=== PATIENT | female | born 1980 | race African-American/Black ===

== ENCOUNTER 2018-01-08 11:05 | Day surgery (SDC) | payer OTHER ==
--- NOTE | 2017-12-27 09:14 | HP ---
DATE OF ADMISSION: 01/08/2018 HISTORY: This is a 37-year-old woman who presents for excision of a longstanding, enlarged soft tissue mass involving the right lower back of undetermined etiology. According to the patient, the mass has been there at least 10 years' time. It was initially small but has continued to grow in size. It has now become large enough where it causes her local discomfort with pressure. PAST MEDICAL HISTORY: Nil. No history of hypertension, heart disease, obesity , respiratory, renal, or hepatic insufficiency. PAST SURGICAL HISTORY: Nil. ALLERGIES: None known. MEDICATIONS: Phentermine 35 mg b.i.d. SOCIAL HISTORY: Negative tobacco. Positive alcohol once weekly. FAMILY HISTORY: None. REVIEW OF SYSTEMS: None. PHYSICAL EXAMINATION: On examination, the patient has a large soft tissue mass involving the right lower back measuring at least 10 cm in size. It appears deep to the lumbee subcutaneous tissue and is somewhat tethered in its posterior plane. There are no satellite lesions or regional lymphadenopathy. IMPRESSION: Enlarging soft tissue mass of the right lower back of undetermined etiology. PLAN: MRI with and without IV contrast. We will proceed with definitive surgical management after MRI evaluation in the form of excision. Indications, alternatives, possible complications were reviewed. Consent obtained. The patient was seen preoperatively by Dr. Brendan Funez. Please refer to his note for those medical details. DUONG CARDOSO M.D. [id number] MTDD
[2018-01-02 10:31] VITALS: BMI 25.5
[2018-01-08] MEDS ORDERED: MIDAZOLAM HCL 2 MG/2 ML SINGLE DOSE VIAL ONE (14:38)
[2018-01-08] MEDS ORDERED: KETOROLAC TROMETHAMINE 30 MG/1 ML VIAL ONE (14:49)
[2018-01-08] MEDS ORDERED: ROCURONIUM BROMIDE 50 MG/5 ML VIAL ONE (14:49)
[2018-01-08] MEDS ORDERED: PROPOFOL 20 ML ONE (14:49)
[2018-01-08] MEDS ORDERED: LIDOCAINE HCL/PF 2% SDV 5ML VIAL ONE (14:49)
[2018-01-08] MEDS ORDERED: DEXAMETHASONE SOD PHOSPHATE 4 MG/1 ML VIAL ONE (14:49)
[2018-01-08] MEDS ORDERED: ONDANSETRON 4 MG/2 ML VIAL ONE (14:49)
[2018-01-08] MEDS ORDERED: BUPIVACAINE HCL/PF 0.5% (5MG/ML) 10 ML VIAL ONE (15:04)
[2018-01-08] MEDS ORDERED: GLYCOPYRROLATE 0.2 MG/1 ML VIAL ONE ×2 (15:39)
[2018-01-08] MEDS ORDERED: NEOSTIGMINE METHYLSULFATE 0.5 MG/ML - 10 ML MDV ONE (15:39)
[2018-01-08] MEDS ORDERED: PROMETHAZINE HCL 25 MG/1 ML VIAL IVPUSH PRN (15:53)
[2018-01-08] MEDS ORDERED: oxyCODONE HCL 5 MG TABLET PO PRN (15:53)
[2018-01-08] MEDS ORDERED: ONDANSETRON 4 MG/2 ML VIAL IVPUSH PRN (15:53)
[2018-01-08] MEDS ORDERED: LACTATED RINGERS SOLUTION 1,000 ML IV SCH (16:00)
[2018-01-08 17:02] VITALS: TEMP 97.8
[2018-01-08 18:24] VITALS: BP 126/78; PULSE 72
--- NOTE | 2018-01-08 18:25 | OP ---
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 POSTOPERATIVE DIAGNOSIS: Subfascial lipomatous neoplasia right lower back. PROCEDURE: Excision subfascial lipomatous neoplasia right lower back, intermediate wound closure (8 cm). OPERATING SURGEON: Sharad Combs M.D. COSMETOLOGIST: None ANESTHESIA: Eugene Kay M.D. (general) HISTORY: A 38-year-old woman who presents for an enlarged soft tissue mass of the right lower back over a considerable period of time. MRI demonstrated a lipomatous neoplasia with septations but with no suspicious stigmata of malignancy. She presented for formal excision. Indications, alternatives, possible complications reviewed. Consent obtained. DESCRIPTION OF PROCEDURE: With the patient in the prone position under general anesthesia, the right lower back was prepped with Betadine. An 8-cm transverse incision was made directly over the mesh and deepened into the subcutaneous space. In the subcutaneous space, a moderately well encapsulated lipomatous neoplasia was encountered. Using sharp dissection, it was teased from its bed in the subcutaneous space and followed to its base. A small portion of it was noted to be emanating through the fibers of the underlying musculature. The muscle fibers were and the lipomatous neoplasia was teased out from its bed at that level and ultimately delivered. After irrigation and adequate hemostasis, the wound was closed in layers. The fascia was closed using interrupted 3-0 chromic sutures. The subcutaneous tissues were approximated using interrupted 3-0 Vicryl sutures. The skin edges were approximated using continuous 5-0 nylon suture. Prior to complete closure of the wound, 10 mL of 0.5% Marcaine was freely instilled in the wound. Dermabond applied. Dressings applied. Procedure terminated. Needle and instrument count correct. Estimated blood loss minimal. Specimens: subfascial soft tissue neoplasia right lower back. Drains none. Patient tolerated the procedure. The procedure was terminated. SHARAD COMBS M.D. [id number] MTDD
--- NOTE | 2018-01-10 15:45 | PATH ---
Surgical Pathology Report Patient Name: MAYELA VITAL [facility]. Rec. #: [id number] /Age/Gender: 1980 (Age: 37) / F Account: [id number] Location: [facility] AMBUL[facility]ORY Taken: 01/08/2018 Received: 01/09/2018 Reported: 01/10/2018 Physicians: Sharad Combs M.D. Specimen(s) Received RIGHT LOWER BACK SOFT TISSUE NEOPLASM Clinical History Benign neoplasm Final Diagnosis SOFT TISSUE, RIGHT LOWER BACK, EXCISION: LIPOMA. Electronically Signed Sam Elise M.D. Gross Description Received in formalin labeled "right lower back soft tissue mass," is an 8.0 x 7.6 x 4.0 cm portion of yellow, lobulated adipose tissue. Sectioning reveals homogeneous yellow, smooth fat. Senior Product Manager sections are submitted in 4 cassettes. /01/09/2018 saudi/01/09/2018
== END 2018-01-08 17:30 | disposition home or self-care (01) ==
LOC: FASU 11:05
PROVIDERS: ATTEND Surgery
PROC: 0JB70ZX Excision of Back Subcutaneous Tissue and Fascia, Open Approach, Diagnostic (ICD-10-PCS; principal; 2018-01-08 15:07)
DX: D21.6 Benign neoplasm of connective and other soft tissue of trunk, unspecified (principal)
CPT/HCPCS: 84703; 88304-TC; 94760

== ENCOUNTER → 2019-04-28 | Day surgery (SDC) | payer OTHER ==
--- NOTE | 2019-04-30 12:14 | PATH ---
Surgical Pathology Report Patient Name: MAYELA VITAL [facility]. Rec. #: [id number] /Age/Gender: 1980 (Age: 38) / F Account: [id number] Location: [facility] RADIOLOGY U Taken: 04/28/2019 Received: 04/28/2019 Reported: 04/30/2019 Physicians: Cori Dunham M.D. Specimen(s) Received RIGHT BREAST UOQ CORE BIOPSY Clinical History Suspicious enhancing area right upper outer quadrant Final Diagnosis BREAST, RIGHT, UOQ, CORE BIOPSY: RADIAL SCLEROSING LESION WITH ASSOCIATED PROLIFERATIVE FIBROCYSTIC CHANGES INCLUDING CYSTIC APOCRINE METAPLASIA, USUAL AND PAPILLARY DUCTAL HYPERPLASIA, COLUMNAR CELL CHANGE AND ASSOCIATED CALCIFICATIONS. Electronically Signed Kailey Munson M.D. Gross Description Received in formalin labeled "right breast," are 8 holt-yellow, cylindrical portions of fibroadipose tissue ranging from 0.6-3.6 cm in length and averaging 0.4 cm in diameter. The specimens are submitted in toto in 2 cassettes. Time to formalin fixation: 2 minutes Total formalin fixation time: Approximately 32 hours. /04/29/2019 saudi04/29/2019
== END | disposition home or self-care (01) ==
LOC: FRADUS-SUR 09:00
PROVIDERS: ATTEND Surgery Surgical Oncology
PROC: 0HBT3ZX Excision of Right Breast, Percutaneous Approach, Diagnostic (ICD-10-PCS; principal; 2019-04-28)
DX: N60.11 Diffuse cystic mastopathy of right breast (principal); N60.81 Other benign mammary dysplasias of right breast; N64.89 Other specified disorders of breast; N63.31 Unspecified lump in axillary tail of the right breast
CPT/HCPCS: 19085; 77065-TC; 88305-TC; A4648; A9579; C1887

== ENCOUNTER 2019-06-09 06:38 | Day surgery (SDC) | payer OTHER ==
--- NOTE | 2019-05-25 13:02 | HP ---
Admitting History and Physical - Primary Care Physician PCP: Josse Arnold - Admission Chief Complaint: Right nipple discharge and radial sclerosing lesion History of Present Illness: Patient is a 38 yo female who presented to the office with complaint of right nipple discharge and right breast pain. Patient was noted to have a right focal density with subtle distortion not seen on US. An MRI done 04/21/2019 was c /w a right 1.6 cm enhancing mass in the axillary tail therefore an MRI guided core bx was recommended. The pathology revealed a right radial sclerosing lesion and hyperplasia. Patient is now presenting for a right breast WE with NL and right MDE. History Source: Patient Limitations to Obtaining History: No Limitations - Past Medical History ...LMP: 12/21/17 - Past Surgical History Additional Past Surgical History: Excision of lower back mass (2019 c/w benign cyst) - Smoking History Smoking history: Former smoker Have you smoked in the past 12 months: No If you are a former smoker, when did you quit?: 2006 - Alcohol/Substance Use Hx Alcohol Use: Yes (OCCASIONAL) Home Medications - Allergies Allergies/Adverse Reactions: Allergies Allergy/AdvReac Type Severity Reaction Status Date / Time No Known Allergies Allergy Verified 01/08/18 11:49 - Home Medications Home Medications: Ambulatory Orders Oxycodone HCl/Acetaminophen [Percocet 5-325 mg Tablet] 1 tab PO Q4H PRN #20 tablet MDD 6 01/08/18 Family Disease History - Family Disease History Family Disease History: CA: Mother (breast cancer at 50) Review of Systems - Review of Systems Constitutional: reports: No Symptoms Cardiovascular: reports: No Symptoms Respiratory: reports: No Symptoms Physical Examination Cardiovascular: Yes: WNL Respiratory: Yes: WNL Breast(s): Yes: Discharge from Nipple (Right pink nipple discharge was illicited. No other suspicious masses or adenopathy was noted bilaterally) Problem List - Problems (1) Discharge from right nipple Code(s): N64.52 - NIPPLE DISCHARGE (2) Breast mass, right Code(s): N63.10 - UNSPECIFIED LUMP IN THE RIGHT BREAST, UNSPECIFIED QUADRANT Assessment/Plan Right breast WE with NL and right major duct excision
[2019-06-04 11:15] VITALS: BMI 27.3
[2019-06-09] MEDS ORDERED: MIDAZOLAM HCL 2 MG/2 ML SINGLE DOSE VIAL ONE ×3 (11:12→11:26)
[2019-06-09] MEDS ORDERED: PROPOFOL 20 ML ONE ×3 (11:12→12:07)
[2019-06-09] MEDS ORDERED: fentaNYL CITRATE 250 MCG/5 ML VIAL ONE ×2 (11:12→11:56)
[2019-06-09] MEDS ORDERED: BUPIVACAINE HCL/PF 2.5 MG/ML - 30 ML VIAL IJ ONE (11:15)
[2019-06-09] MEDS ORDERED: LIDOCAINE 1%/EPI 1:100000 (20 ML MULTI DOSE VIAL) ONE (11:15)
[2019-06-09] MEDS ORDERED: ROCURONIUM BROMIDE 50 MG/5 ML SYRINGE ONE (11:46)
[2019-06-09] MEDS ORDERED: GLYCOPYRROLATE 0.2 MG/1 ML VIAL ONE ×2 (12:00→12:46)
[2019-06-09] MEDS ORDERED: DEXAMETHASONE SOD PHOSPHATE 4 MG/1 ML VIAL ONE (12:00)
[2019-06-09] MEDS ORDERED: ONDANSETRON 4 MG/2 ML VIAL ONE ×2 (12:00→13:01)
[2019-06-09] MEDS ORDERED: NEOSTIGMINE METHYLSULFATE 0.5 MG/ML - 10 ML MDV ONE (12:01)
[2019-06-09] MEDS ORDERED: BUPIVACAINE HCL/PF 0.25% (2.5MG/ML) 10 ML VIAL IJ ONE (12:25)
[2019-06-09] MEDS ORDERED: GUM MASTIC/STORAX/MSAL/ALCOHOL 1 DRP DROPSBTL MC ONE (12:38)
[2019-06-09] MEDS ORDERED: KETOROLAC TROMETHAMINE 30 MG/1 ML VIAL IVPUSH PRN (12:59)
[2019-06-09] MEDS ORDERED: ONDANSETRON 4 MG/2 ML VIAL IVPUSH PRN ×2 (12:59→13:07)
[2019-06-09] MEDS ORDERED: DEXTROSE 5%-0.45% SALINE 1,000 ML IV SCH (13:00)
[2019-06-09] MEDS ORDERED: ACETAMINOPHEN 1000 MG/100 ML VIAL (NON FORMULARY) IVPB PRN (13:07)
[2019-06-09] MEDS ORDERED: PROMETHAZINE HCL 25 MG/1 ML VIAL IVPB PRN (13:07)
[2019-06-09] MEDS ORDERED: oxyCODONE HCL 5 MG TABLET PO PRN (13:07)
[2019-06-09] MEDS ORDERED: LACTATED RINGERS SOLUTION 1,000 ML IV SCH (13:15)
[2019-06-09] MEDS ORDERED: ACETAMINOPHEN INJECTION 100 ML IVPB ONE (13:54)
[2019-06-09] MEDS ORDERED: KETOROLAC TROMETHAMINE 30 MG/1 ML VIAL ONE (14:12)
[2019-06-09 14:57] VITALS: TEMP 98.2
[2019-06-09 15:10] VITALS: BP 138/72; PULSE 82
--- NOTE | 2019-06-10 12:34 | OP ---
DATE OF OPERATION: 06/09/2019 PREOPERATIVE DIAGNOSIS: Right breast bloody nipple discharge and right breast radial scar. POSTOPERATIVE DIAGNOSIS: Right breast bloody nipple discharge and right breast radial scar. PROCEDURE: Right mammographically localized partial mastectomy and right major duct excision. ANESTHESIA: General intubated. ATTENDING SURGEON: Fern Arnold MD BOARD CERTIFIED MUSIC THERAPIST: AMY Haley ESTIMATED BLOOD LOSS: Minimal. OPERATIVE REPORT: Patient was made aware of the risks and benefits of the procedure and consented. Preoperatively patient went to the radiology suite where a needle was placed next to the upper outer quadrant lesion. She was then placed in a supine position on the operating table and, after general anesthesia was induced, the patient was intubated with an LMA. Thereafter, she got some laryngospasm and had to be endotracheal intubated. The operative site was then prepped and draped in usual sterile fashion. The right upper outer quadrant breast lesion was approached first. An axillary incision was made and using electrocautery thick skin flaps were made to the needle. Needle was withdrawn through the puncture site and the wire through the wound. Tissues around the wire were then sharply excised and submitted with a short suture superior, long suture lateral. Specimen radiograph confirmed the presence of the index lesion. This was then submitted to pathology. The wound was copiously irrigated with normal saline. Hemostasis maintained by electrocautery. The wound was then closed with deep 3-0 Vicryl followed by a running subcuticular 4-0 Monocryl. The major duct excision was then performed. Areolar incision was then made. Using electrocautery skin flap was made to the nipple where a dilated duct was easily identified. This was excised in its completion as well as a tuft of posterior tissue and submitted to pathology. The wound was copiously irrigated with normal saline. Hemostasis maintained by electrocautery. The wound was then closed with deep 3-0 Vicryl followed by a running subcuticular 4-0 Monocryl. Steri-Strips, sterile dressing and a compression bra were then applied and the patient, having tolerated the procedure well, was transferred to the recovery room in excellent condition. FERN ARNOLD M.D. [id number]
--- NOTE | 2019-06-12 13:45 | PATH ---
Surgical Pathology Report Patient Name: MAYELA VITAL [facility]. Rec. #: [id number] /Age/Gender: 1980 (Age: 38) / F Account: [id number] Location: [facility] AMBULATORY Taken: 06/09/2019 Received: 06/09/2019 Reported: 06/12/2019 Physicians: Josse Arnold M.D. Specimen(s) Received A: RIGHT BREAST WIDE ESCISION B: RIGHT BREAST MAJOR DUCT EXCISION Clinical History Right breast bloody nipple discharge Final Diagnosis A. RIGHT BREAST, WIDE EXCISION: BREAST TISSUE WITH INTRADUCTAL PAPILLOMA AND PROLIFERATIVE FIBROCYSTIC CHANGES INCLUDING CYSTIC AND PAPILLARY APOCRINE METAPLASIA, USUAL DUCTAL HYPERPLASIA (UDH), AND COLUMNAR CELL CHANGE. REACTIVE CHANGES AT PRIOR BIOPSY SITE IDENTIFIED. B. RIGHT BREAST, MAJOR DUCT EXCISION: BREAST TISSUE WITH INTRADUCTAL PAPILLOMA WITH SCLEROSIS. Electronically Signed Bimal Morrison M.D. Gross Description A. Received in formalin, labeled "right breast wide excision" is a 3 x 2.5 x 1.5 cm portion of fibrofatty tissue with a long suture indicating the lateral margin and a short suture indicating the superior margin, per the surgeon. The specimen is inked as follows: Superior blue, inferior green, medial yellow, deep black, anterior and lateral, red. Sectioning reveals fibrous to firm tissue abutting the anterior and superior margins. A metallic clip is identified within the tissue. The specimen is entirely submitted in five cassettes as follows: 1-6-ocyuinfc sectioned central tissue (tissue with clip in #1); 4-lateral margin; 5-medial margin. B. Received in formalin, labeled "right breast, major duct excision" is a 4.2 x 1.3 x 1 cm, unoriented portion of fibrofatty tissue with an ectatic appearing duct at one aspect. The specimen is inked black. Sectioning reveals ectatic duct and holt fibrous tissue. Serially sectioned and entirely submitted in five cassettes. Time to formalin fixation: 11 minutes (A), 4 minutes (B) Total formalin fixation time: Approximately 30 hours [facility]/06/10/2019
== END 2019-06-09 15:35 | disposition home or self-care (01) ==
LOC: FASU 06:38
PROVIDERS: ATTEND Surgery Surgical Oncology
PROC: 0HBT0ZX Excision of Right Breast, Open Approach, Diagnostic (ICD-10-PCS; 2019-06-09)
PROC: 0HBT0ZZ Excision of Right Breast, Open Approach (ICD-10-PCS; principal; 2019-06-09 11:54)
DX: D24.1 Benign neoplasm of right breast (principal); N64.52 Nipple discharge; N64.89 Other specified disorders of breast; N60.81 Other benign mammary dysplasias of right breast; Z87.891 Personal history of nicotine dependence
CPT/HCPCS: 19281; 84703; 88307-TC; 94760; J0131

== ENCOUNTER 2021-01-10 04:16 | Emergency (ER) | payer OTHER ==
[2021-01-10 04:42] VITALS: BP 131/75; PULSE 96; TEMP 98.4; BMI 27.5
[2021-01-10 08:39] LABS: INR 1.03 (0.83-1.09); PROTHROMBIN TIME (PATIENT) 12.6 SEC (9.7-13.0)
[2021-01-10 08:41] LABS: ACTIVATED PTT 23.7 SECONDS (25.2-36.5)
[2021-01-10 08:42] LABS: BASO % 0.9 % (0-2.0); EOS % 0.8 % (0-4.5); HEMATOCRIT 22.3 % (32.4-45.2); HEMOGLOBIN 7.1 GM/dL (10.7-15.3); LYMPH % 22.7 % (8-40); MCH 25.2 pg (25.7-33.7); MCHC 31.9 g/dl (32.0-36.0); MEAN CELL VOLUME 79.2 fl (80-96); MEAN PLT VOLUME 7.8 fl (7.5-11.1); NEUT % 70.6 % (42.8-82.8); PLATELET COUNT 401 K/MM3 (134-434); RBC 2.82 M/mm3 (3.60-5.2); RDW 18.4 % (11.6-15.6); WHITE BLOOD COUNT 9.4 K/mm3 (4.0-10.0)
[2021-01-10 09:08] LABS: ALBUMIN 3.1 g/dl (3.4-5.0); CALCIUM 8.6 mg/dL (8.5-10.1)
[2021-01-10 09:12] LABS: CREATININE 0.9 mg/dL (0.55-1.3)
[2021-01-10 09:14] LABS: BILIRUBIN,TOTAL 0.2 mg/dL (0.2-1)
== END 2021-01-10 05:45 | disposition home or self-care (01) ==
LOC: JER 04:16
DX: N93.8 Other specified abnormal uterine and vaginal bleeding (principal)
CPT/HCPCS: 36415; 80053; 85025; 85610; 85730; 99283-25

== ENCOUNTER 2021-01-10 05:34 | Inpatient (IN) | payer OTHER ==
[2021-01-09 09:59] VITALS: BMI 28.1
[2021-01-10] MEDS ORDERED: ceFAZolin SODIUM 1 GM VIAL ONE (06:53)
[2021-01-10] MEDS ORDERED: DEXAMETHASONE SOD PHOSPHATE/PF 10 MG/ML SDV ONE (07:12)
[2021-01-10] MEDS ORDERED: MIDAZOLAM HCL 2 MG/2 ML SINGLE DOSE VIAL ONE ×2 (07:14)
[2021-01-10] MEDS ORDERED: ROCURONIUM BROMIDE 50 MG/5 ML SYRINGE ONE (07:54)
[2021-01-10] MEDS ORDERED: SUCCINYLCHOLINE CHLORIDE 200 MG/10 ML SYRINGE ONE (07:54)
[2021-01-10] MEDS ORDERED: PROPOFOL 20 ML ONE ×2 (07:54)
[2021-01-10] MEDS ORDERED: fentaNYL CITRATE 250 MCG/5 ML VIAL ONE (07:55)
[2021-01-10] MEDS ORDERED: CEFAZOLIN 2 GM in DEXTROSE 5%-WATER - 100 ML IVPB ONE (08:00)
[2021-01-10] MEDS ORDERED: ceFAZolin SODIUM 1 GM VIAL IVPB ONE (08:55)
[2021-01-10] MEDS ORDERED: NEOSTIGMINE METHYLSULFATE 0.5 MG/ML - 10 ML MDV ONE (10:31)
[2021-01-10] MEDS ORDERED: METOCLOPRAMIDE HCL INJECTION 10 MG/2 ML VIAL IVPUSH PRN (10:52)
[2021-01-10] MEDS ORDERED: MORPHINE SULFATE 2 MG/ML VIAL IVPUSH PRN ×2 (10:52)
[2021-01-10] MEDS ORDERED: ONDANSETRON 4 MG/2 ML VIAL IVPB PRN (10:52)
[2021-01-10] MEDS ORDERED: ONDANSETRON 4 MG/2 ML VIAL ONE (11:00)
[2021-01-10] MEDS ORDERED: ONDANSETRON 4 MG/2 ML VIAL IVPUSH PRN (11:31)
[2021-01-10] MEDS ORDERED: ACETAMINOPHEN 1000 MG/100 ML VIAL (NON FORMULARY) IVPB ONE (11:34)
[2021-01-10] MEDS: HYDROmorphone *PCA* 10MG/50ML DISP.SYRIN PCA SCH ×2 (12:00→23:15)
[2021-01-10] MEDS ORDERED: LACTATED RINGERS SOLUTION 1,000 ML/1,000 ML INFUS.BAG IV SCH (12:30)
[2021-01-10 12:45] LABS: HEMATOCRIT 23.6 % (32.4-45.2); HEMOGLOBIN 7.3 GM/dL (10.7-15.3); MCH 24.7 pg (25.7-33.7); MEAN CELL VOLUME 79.7 fl (80-96); MEAN PLT VOLUME 7.4 fl (7.5-11.1); PLATELET COUNT 414 K/MM3 (134-434); RBC 2.96 M/mm3 (3.60-5.2); RDW 18.4 % (11.6-15.6); WHITE BLOOD COUNT 21.7 K/mm3 (4.0-10.0)
[2021-01-10] MEDS ORDERED: PATIENT'S OWN MEDICATION (NON-FORMULARY) (Iron [Iron] 18 MG Tablet) PO SCH (14:00)
[2021-01-10] MEDS: ACETAMINOPHEN 325 MG TABLET (FP) PO SCH ×2 (17:18→22:36)
[2021-01-10] MEDS: KETOROLAC TROMETHAMINE 15 MG/ML VIAL IVPUSH SCH ×2 (17:18→22:36)
[2021-01-10] MEDS: ceFAZolin 2 GRAM PREMIX BAG IVPB SCH (18:08)
[2021-01-10] MEDS ORDERED: PCA PUMP NR ONE (23:19)
[2021-01-11] MEDS ORDERED: PCA PUMP NR ONE ×2 (00:12→08:23)
[2021-01-11] MEDS: KETOROLAC TROMETHAMINE 15 MG/ML VIAL IVPUSH SCH ×5 (00:46→23:15)
[2021-01-11] MEDS: ACETAMINOPHEN 325 MG TABLET (FP) PO SCH ×4 (02:49→23:15)
[2021-01-11] MEDS ORDERED: oxyCODONE HCL 5 MG TABLET PO PRN (08:02)
[2021-01-11] MEDS ORDERED: MORPHINE SULFATE 2 MG/ML VIAL IVPUSH PRN (08:04)
[2021-01-11] MEDS: oxyCODONE HCL 5 MG TABLET PO PRN ×2 (08:24→18:32)
[2021-01-11] MEDS: ENOXAPARIN NA (PORCINE) 40 MG/0.4 ML DISP.SYRIN SQ SCH ×2 (08:51→10:13)
[2021-01-11] MEDS: ceFAZolin 2 GRAM PREMIX BAG IVPB SCH ×2 (08:51→10:13)
[2021-01-11 08:57] LABS: HEMATOCRIT 21.7 % (32.4-45.2); MCHC 31.3 g/dl (32.0-36.0); MEAN CELL VOLUME 80.1 fl (80-96); MEAN PLT VOLUME 8.2 fl (7.5-11.1); PLATELET COUNT 403 K/MM3 (134-434); RBC 2.71 M/mm3 (3.60-5.2); RDW 19.3 % (11.6-15.6); WHITE BLOOD COUNT 15.9 K/mm3 (4.0-10.0)
[2021-01-11 09:08] LABS: HEMOGLOBIN 6.8 GM/dL (10.7-15.3)
[2021-01-11 09:16] LABS: POTASSIUM 4.3 mmol/L (3.5-5.1)
[2021-01-11] MEDS ORDERED: PATIENT'S OWN MEDICATION (NON-FORMULARY) (Linaclotide [Linzess] 72 MCG Capsule) PO SCH (10:00)
[2021-01-11 10:07] LABS: BLOOD UREA NITROGEN 7.2 mg/dL (7-18); CALCIUM 8.5 mg/dL (8.5-10.1)
[2021-01-11 10:10] LABS: CREATININE 1.1 mg/dL (0.55-1.3)
[2021-01-11] MEDS: SIMETHICONE 80 MG TAB.CHEW (FP) PO PRN (23:17)
[2021-01-12] MEDS: KETOROLAC TROMETHAMINE 15 MG/ML VIAL IVPUSH SCH ×3 (05:59→10:28)
[2021-01-12] MEDS: ACETAMINOPHEN 325 MG TABLET (FP) PO SCH ×2 (06:00→10:29)
[2021-01-12] MEDS: SIMETHICONE 80 MG TAB.CHEW (FP) PO PRN ×2 (06:02→10:32)
[2021-01-12 09:20] LABS: BASO % 0.8 % (0-2.0); HEMATOCRIT 25.2 % (32.4-45.2); HEMOGLOBIN 8.4 GM/dL (10.7-15.3); LYMPH % 14.8 % (8-40); MCH 26.4 pg (25.7-33.7); MCHC 33.2 g/dl (32.0-36.0); MEAN CELL VOLUME 79.4 fl (80-96); MEAN PLT VOLUME 7.9 fl (7.5-11.1); MONO % 4.2 % (3.8-10.2); NEUT % 79.2 % (42.8-82.8); PLATELET COUNT 397 K/MM3 (134-434); RBC 3.18 M/mm3 (3.60-5.2); RDW 18.9 % (11.6-15.6); WHITE BLOOD COUNT 9.9 K/mm3 (4.0-10.0)
[2021-01-12] MEDS: ENOXAPARIN NA (PORCINE) 40 MG/0.4 ML DISP.SYRIN SQ SCH (10:41)
[2021-01-12] MEDS ORDERED: ONDANSETRON *ODT* 4 MG TABLET SL ONE (11:06)
[2021-01-12] MEDS ORDERED: PT OWN MED DRAWER 7, Y5N ONE (11:51)
[2021-01-12 15:19] VITALS: BP 153/94; PULSE 89; TEMP 98.2
== END 2021-01-12 14:18 | disposition home or self-care (01) | DRG 743 ==
LOC: JASU-SURG 05:34 → J2C 10:52 → J6S 16:00
PROVIDERS: ADMIT Obstetrics & Gynecology Gynecologic Oncology; ATTEND Obstetrics & Gynecology Gynecologic Oncology
PROC: 0UT70ZZ Resection of Bilateral Fallopian Tubes, Open Approach (ICD-10-PCS; 2021-01-10)
PROC: 0UT90ZZ Resection of Uterus, Open Approach (ICD-10-PCS; principal; 2021-01-10 08:00)
PROC: 30233N1 Transfusion of Nonautologous Red Blood Cells into Peripheral Vein, Percutaneous Approach (ICD-10-PCS; 2021-01-11)
DX: D25.1 Intramural leiomyoma of uterus (principal); N92.0 Excessive and frequent menstruation with regular cycle; D50.0 Iron deficiency anemia secondary to blood loss (chronic); D25.0 Submucous leiomyoma of uterus
CPT/HCPCS: 36415; 36430; 80048; 81025; 85025; 85027; 86850; 86900; 86901; 86922; 88307-TC; 94760; J0131; P9058; Q0162